=== PATIENT | male | born 1940 | race Caucasian/White ===

== ENCOUNTER 2021-09-14 09:48 | Outpatient (CLI) | payer MEDICARE, BC | END 2021-09-14 09:49 | disposition home or self-care (01) | LOC: SCSMRI 09:48 | PROVIDERS: ATTEND Psychiatry & Neurology Epilepsy | DX: G31.84 Mild cognitive impairment of uncertain or unknown etiology (principal) | CPT/HCPCS: 70551 ==

== ENCOUNTER 2021-09-15 10:15 | Outpatient (CLI) | payer MEDICARE, BC | END 2021-09-15 10:16 | disposition home or self-care (01) | LOC: PET 10:15 | PROVIDERS: ATTEND Psychiatry & Neurology Epilepsy | DX: G31.84 Mild cognitive impairment of uncertain or unknown etiology (principal); G31.9 Degenerative disease of nervous system, unspecified | CPT/HCPCS: 78803; A9552 ==

== ENCOUNTER 2021-11-06 07:49 | Outpatient (CLI) | payer MEDICARE, BC | END 2021-11-06 07:50 | disposition home or self-care (01) | LOC: CT 07:49 | PROVIDERS: ATTEND Psychiatry & Neurology Epilepsy | DX: G20 Parkinson's disease (principal); R26.89 Other abnormalities of gait and mobility; M51.36 Other intervertebral disc degeneration, lumbar region; M47.816 Spondylosis without myelopathy or radiculopathy, lumbar region; Z98.890 Other specified postprocedural states | CPT/HCPCS: 72131; 78803; A9584 ==